=== PATIENT | female | born 1960 | race American Indian/Alaskan Native ===

== ENCOUNTER 2019-06-30 21:16 | Emergency (ER) | payer BC, OTHER ==
[2019-07-01 02:25] LABS: Basophils # (Auto) 0.1 K/mm3 (0.0-0.1); Basophils % (Auto) 0.6 % (0.0-1.8); Eosinophils # (Auto) 0.2 K/mm3 (0.0-0.4); Eosinophils % (Auto) 1.9 % (0.0-4.3); Hematocrit 39.7 % (30.3-42.9); Hemoglobin 13.7 gm/dl (10.1-14.3); Lymphocytes # (Auto) 3.1 K/mm3 (1.2-5.4); Lymphocytes % (Auto) 33.8 % (13.4-35.0); Mean Corpuscular HGB Conc 34 % (30-34); Mean Corpuscular Volume 90 fl (79-97); Monocytes # (Auto) 0.6 K/mm3 (0.0-0.8); Platelet Count 299 K/mm3 (140-440); Red Blood Count 4.41 M/mm3 (3.65-5.03); Red Cell Distribution Width 14.3 % (13.2-15.2)
[2019-07-01] MEDS ORDERED: KETOROLAC 30 MG/1 ML INJ IV ONE (02:28)
[2019-07-01] MEDS ORDERED: ONDANSETRON 4 MG/2 ML INJ IV ONE (02:28)
[2019-07-01] MEDS ORDERED: MORPHINE 4 MG/1 ML INJ IV ONE (02:28)
--- NOTE | 2019-07-01 02:30 | Emergency Department Report ---
ED General Adult HPI - General Chief complaint: Abdominal Pain Stated complaint: LT LOWR SIDE PAIN Time Seen by Provider: 07/01/19 01:44 Source: patient, RN notes reviewed, old records reviewed Mode of arrival: Ambulatory Limitations: No Limitations - History of Present Illness Initial comments: This is a pleasant 58-year-old female. This patient is not known to myself previously. She has a history of nephrolithiasis. She presents to the ER today with a complaint of nontraumatic left-sided flank pain. It is achy and throbbing. It is constant. It does not radiate anywhere. She thinks it may be similar to her prior episodes of kidney stones, but she is not sure. She denies hematuria, dysuria, irritative and obstructive urinary symptoms. She denies recent surgery, travel, and she denies DVT, pulmonary embolism risk factors. On review of systems, she endorses heartburn and heart acid feeling, present for a few weeks. There is no vomiting, diaphoresis, exertional shortness of breath, this does not have exacerbating or relieving factors, and does not radiate anywhere. Her symptoms were improved by hydromorphone, and ketorolac in the emergency room. -: Gradual Location: abdomen Radiation: non-radiation Quality: other Consistency: other Improves with: other Worsens with: other - Related Data Home Medications Medication Instructions Recorded Confirmed Last Taken Triamter/Hctz 37.5-25 mg 1 tab PO QDAY 06/24/13 05/28/15 05/27/15 10:00 [Maxzide-25] Previous Rx's Medication Instructions Recorded Last Taken Type Acetaminophen [Non-Aspirin Extra 500 mg PO Q6HR PRN #30 tablet 07/01/19 Unknown Rx Strength] Famotidine [Pepcid] 20 mg PO BID #10 tablet 07/01/19 Unknown Rx Ibuprofen [Motrin] 600 mg PO Q8H PRN #30 tablet 07/01/19 Unknown Rx Allergies Allergy/AdvReac Type Severity Reaction Status Date / Time No Known Allergies Allergy Verified 04/12/15 15:11 ED Review of Systems ROS: Stated complaint: LT LOWR SIDE PAIN Other details as noted in HPI Constitutional: denies: fever, malaise Eyes: denies: eye discharge Respiratory: denies: wheezing Cardiovascular: other Gastrointestinal: abdominal pain. denies: nausea, vomiting, hematemesis, melena, hematochezia Genitourinary: denies: urgency, dysuria, frequency, hematuria Musculoskeletal: back pain Skin: denies: lesions Hematological/Lymphatic: denies: easy bleeding ED Past Medical Hx - Past Medical History Hx Hypertension: Yes Hx GERD: Yes Hx Renal Disease: Yes (Kidney stones) Hx Kidney Stones: Yes Hx Asthma: No Hx HIV: No - Surgical History Hx Cholecystectomy: Yes Additional Surgical History: Herniated disc. Hernia repair. kidney stone removal. - Social History Smoking Status: Never Smoker Substance Use Type: None - Medications Home Medications: Home Medications Medication Instructions Recorded Confirmed Last Taken Type Triamter/Hctz 37.5-25 mg 1 tab PO QDAY 06/24/13 05/28/15 05/27/15 10:00 History [Maxzide-25] Acetaminophen [Non-Aspirin Extra 500 mg PO Q6HR PRN #30 tablet 07/01/19 Unknown Rx Strength] Famotidine [Pepcid] 20 mg PO BID #10 tablet 07/01/19 Unknown Rx Ibuprofen [Motrin] 600 mg PO Q8H PRN #30 tablet 07/01/19 Unknown Rx ED Physical Exam - General Limitations: No Limitations General appearance: alert, in no apparent distress - Head Head exam: Present: atraumatic, normocephalic - Eye Eye exam: Present: normal appearance, EOMI. Absent: nystagmus - ENT ENT exam: Present: normal exam, normal orophraynx, mucous membranes moist, normal external ear exam - Neck Neck exam: Present: normal inspection, full ROM. Absent: tenderness, mening ismus - Respiratory Respiratory exam: Present: normal lung sounds bilaterally. Absent: respiratory distress - Cardiovascular Cardiovascular Exam: Present: regular rate, normal rhythm, normal heart sounds. Absent: bradycardia, tachycardia, irregular rhythm, systolic murmur, diastolic murmur, rubs, gallop - GI/Abdominal GI/Abdominal exam: Present: soft, normal bowel sounds. Absent: distended, tenderness, guarding, rebound, rigid, pulsatile mass - Extremities Exam Extremities exam: Present: normal inspection, full ROM, other (2+ pulses noted in the bilateral upper and lower extremities. There is no palpable cord. negative Homans sign. Muscular compartments are soft. The pelvis is stable.). Absent: pedal edema, calf tenderness - Back Exam Back exam: Present: normal inspection, full ROM. Absent: tenderness, CVA tenderness (R), CVA tenderness (L), paraspinal tenderness, vertebral tenderness - Neurological Exam Neurological exam: Present: alert, oriented X3, normal gait, other (There is no facial droop. The tongue is midline. Extraocular movements are intact bilaterally. There is 5 out of 5 strength in bilateral upper and lower extremities. Sensation is intact to light touch bilateral upper and lower extremities. There is a normal gait.). Absent: motor sensory deficit - Psychiatric Psychiatric exam: Present: normal affect, normal mood - Skin Skin exam: Present: warm, dry, intact, normal color. Absent: rash ED Course Vital Signs 06/30/19 07/01/19 21:27 01:49 Temperature 98.6 F Pulse Rate 74 67 Respiratory 18 14 Rate Blood Pressure 127/57 148/84 O2 Sat by Pulse 96 97 Oximetry - Reevaluation(s) Reevaluation #1: 07/01/19 05:43 Patient endorsed that her pain felt much improved at the time of discharge. Indeed, at the time of discharge, she is now pain-free, smiling, and endorses readiness for going home. ED Medical Decision Making - Lab Data Result diagrams: 07/01/19 02:02 07/01/19 02:02 Vital Signs 06/30/19 07/01/19 21:27 01:49 Temperature 98.6 F Pulse Rate 74 67 Respiratory 18 14 Rate Blood Pressure 127/57 148/84 O2 Sat by Pulse 96 97 Oximetry Lab Results 07/01/19 07/01/19 07/01/19 Range/Units 02:02 02:02 02:15 WBC 9.3 (4.5-11.0) K/mm3 RBC 4.41 (3.65-5.03) M/mm3 Hgb 13.7 (10.1-14.3) gm/dl Hct 39.7 (30.3-42.9) % MCV 90 (79-97) fl MCH 31 (28-32) pg MCHC 34 (30-34) % RDW 14.3 (13.2-15.2) % Plt Count 299 (140-440) K/mm3 Lymph % (Auto) 33.8 (13.4-35.0) % [place] % (Auto) 7.0 (0.0-7.3) % Eos % (Auto) 1.9 (0.0-4.3) % Baso % (Auto) 0.6 (0.0-1.8) % Lymph # 3.1 (1.2-5.4) K/mm3 [place] # 0.6 (0.0-0.8) K/mm3 Eos # 0.2 (0.0-0.4) K/mm3 Baso # 0.1 (0.0-0.1) K/mm3 Seg Neutrophils % 56.7 (40.0-70.0) % Seg Neutrophils # 5.2 (1.8-7.7) K/mm3 Sodium 142 (137-145) mmol/L Potassium 4.1 (3.6-5.0) mmol/L Chloride 102.4 (98-107) mmol/L Carbon Dioxide 28 (22-30) mmol/L Anion Gap 16 mmol/L BUN 16 (7-17) mg/dL Creatinine 0.6 L (0.7-1.2) mg/dL Estimated GFR > 60 ml/min BUN/Creatinine Ratio 27 % Glucose 98 (65-100) mg/dL Calcium 9.5 (8.4-10.2) mg/dL Magnesium (1.7-2.3) mg/dL Total Bilirubin 0.20 (0.1-1.2) mg/dL AST 31 (5-40) units/L ALT 41 (7-56) units/L Alkaline Phosphatase 88 (35-129) units/L Total Creatine Kinase (30-135) units/L Troponin T (0.00-0.029) ng/mL Total Protein 7.4 (6.3-8.2) g/dL Albumin 4.4 (3.9-5) g/dL Albumin/Globulin Ratio 1.5 % Urine Color Yellow (Yellow) Urine Turbidity Clear (Clear) Urine pH 5.0 (5.0-7.0) Ur Specific [place] 1.023 (1.003-1.030) Urine Protein <15 mg/dl (Negative) mg/dL Urine Glucose (UA) Neg (Negative) mg/dL Urine Ketones Neg (Negative) mg/dL Urine Blood Neg (Negative) Urine Nitrite Neg (Negative) Urine Bilirubin Neg (Negative) Urine Urobilinogen < 2.0 (<2.0) mg/dL Ur Leukocyte Esterase Neg (Negative) Urine WBC (Auto) 1.0 (0.0-6.0) /HPF Urine RBC (Auto) 1.0 (0.0-6.0) /HPF U Epithel Cells (Auto) < 1.0 (0-13.0) /HPF Urine Bacteria (Auto) 1+ (Negative) /HPF Urine Mucus Few /HPF 07/01/19 07/01/19 Range/Units 02:31 03:32 WBC (4.5-11.0) K/mm3 RBC (3.65-5.03) M/mm3 Hgb (10.1-14.3) gm/dl Hct (30.3-42.9) % MCV (79-97) fl MCH (28-32) pg MCHC (30-34) % RDW (13.2-15.2) % Plt Count (140-440) K/mm3 Lymph % (Auto) (13.4-35.0) % [place] % (Auto) (0.0-7.3) % Eos % (Auto) (0.0-4.3) % Baso % (Auto) (0.0-1.8) % Lymph # (1.2-5.4) K/mm3 [place] # (0.0-0.8) K/mm3 Eos # (0.0-0.4) K/mm3 Baso # (0.0-0.1) K/mm3 Seg Neutrophils % (40.0-70.0) % Seg Neutrophils # (1.8-7.7) K/mm3 Sodium (137-145) mmol/L Potassium (3.6-5.0) mmol/L Chloride (98-107) mmol/L Carbon Dioxide (22-30) mmol/L Anion Gap mmol/L BUN (7-17) mg/dL Creatinine (0.7-1.2) mg/dL Estimated GFR ml/min BUN/Creatinine Ratio % Glucose (65-100) mg/dL Calcium (8.4-10.2) mg/dL Magnesium 2.20 (1.7-2.3) mg/dL Total Bilirubin (0.1-1.2) mg/dL AST (5-40) units/L ALT (7-56) units/L Alkaline Phosphatase (35-129) units/L Total Creatine Kinase 80 (30-135) units/L Troponin T < 0.010 (0.00-0.029) ng/mL Total Protein (6.3-8.2) g/dL Albumin (3.9-5) g/dL Albumin/Globulin Ratio % Urine Color (Yellow) Urine Turbidity (Clear) Urine pH (5.0-7.0) Ur Specific [place] (1.003-1.030) Urine Protein (Negative) mg/dL Urine Glucose (UA) (Negative) mg/dL Urine Ketones (Negative) mg/dL Urine Blood (Negative) Urine Nitrite (Negative) Urine Bilirubin (Negative) Urine Urobilinogen (<2.0) mg/dL Ur Leukocyte Esterase (Negative) Urine WBC (Auto) (0.0-6.0) /HPF Urine RBC (Auto) (0.0-6.0) /HPF U Epithel Cells (Auto) (0-13.0) /HPF Urine Bacteria (Auto) (Negative) /HPF Urine Mucus /HPF - EKG Data -: EKG Interpreted by Ne EKG shows normal: sinus rhythm Rate: normal - EKG Data Interpretation: unchanged when compared t (03/2015) 07/01/19 05:24 EKG #1 shows a sinus rhythm, 62 bpm, rate 62 bpm, borderline leftward axis deviation, low voltage in the inferior leads, Q waves noted in lead III, there is prolonged NC interval, the EKG is abnormal, it is not consistent with ST elevation myocardial infarction. EKG #2 appears to be unchanged from prior EKG. Neither EKG consistent with STEMI. - Radiology Data Radiology results: report reviewed, image reviewed X-ray of the chest is negative for acute disease. Noncontrast CT scan of the abdomen pelvis is negative for acute disease. - Medical Decision Making Differential diagnosis, including not limited to: Renal colic, urinary tract infection, constipation obstruction, lower lobe pneumonia, AAA, GERD, gastritis, hiatal hernia, musculoskeletal back pain Assessment and plan: 58-year-old female, not tachycardic, tachypneic or hypoxic, with no DVT or pulmonary embolism risk factors, low risk by Wells criteria, with primary complaint of nontraumatic left-sided flank pain. Exam unremarkable, laboratory studies unremarkable, urinalysis unremarkable, CT scan abdomen pelvis unremarkable. Her pain was treated aggressively and she felt improved. Secondarily endorsed complaint of heartburn, 4 weeks. EKG unchanged x2, troponin negative x1, low risk for major adverse cardiac event as per heart score, as per [employer] clinical policy, myocardial infarction may be excluded with 1 set of cardiac enzymes if symptoms present for greater than 8 hours. Patient suitable for trial of outpatient management and close outpatient follow-up. Return precautions are reviewed. Patient endorses understanding. Critical care attestation.: If time is entered above; I have spent that time in minutes in the direct care of this critically ill patient, excluding procedure time. ED Disposition Clinical Impression: Left flank pain, History of heartburn Disposition: TO HOME OR SELFCARE Is pt being admited?: No Does the pt Need Aspirin: No Condition: Stable Additional Instructions: Rest, avoid heavy lifting, and avoid strenuous physical activities. Take the medications as needed and/or directed. Recommend follow-up with your outpatient primary care doctor within the next 5 to 7 days. Recommend follow-up with a primary care doctor or malted milk mixer for sensation of heartburn within the next 3 to 5 days. Please return to the emergency room right away with projectile vomiting, change in mental status, confusion, inability to tolerate liquid feeds, new, worsened or different symptoms not present on the initial emergency room evaluation. Prescriptions: Ibuprofen [Motrin] 600 mg PO Q8H PRN #30 tablet PRN Reason: Pain Acetaminophen [Non-Aspirin Extra Strength] 500 mg PO Q6HR PRN #30 tablet PRN Reason: Pain , Severe (7-10) Famotidine [Pepcid] 20 mg PO BID #10 tablet Referrals: MINNIE DAVIS MD [Primary Care Provider] - 3-5 Days [facility] [Provider Group] - 3-5 Days [facility] [Provider Group] - 3-5 Days
[2019-07-01 02:42] LABS: Alanine Aminotransferase 41 units/L (7-56); Albumin 4.4 g/dL (3.9-5); BUN/Creatinine Ratio 27; Blood Urea Nitrogen 16 mg/dL (7-17); Calcium 9.5 mg/dL (8.4-10.2); Hemolysis Index 5
[2019-07-01 03:16] LABS: Bacteria,Urine 1+ /HPF (Negative); Bilirubin,Urine NEG (Negative); Blood,Urine NEG (Negative); Color,Urine Yellow (Yellow); Mucus,Urine FEW /HPF; Protein,Urine <15 mg/dL mg/dL (Negative); Urobilinogen,Urine < 2.0 mg/dL (<2.0)
[2019-07-01] MEDS ORDERED: HYDROmorphone 1 MG/1 ML INJ IV ONE (03:28)
--- NOTE | 2019-07-01 04:02 | XRay Report ---
CHEST 1 VIEW 07/01/2019 3:29 AM INDICATION / CLINICAL INFORMATION: heart burn and acid feeling. COMPARISON: One view of the chest from 04/12/2015. FINDINGS: SUPPORT DEVICES: None. HEART / MEDIASTINUM: No significant abnormality. LUNGS / PLEURA: No significant pulmonary or pleural abnormality. No pneumothorax. ADDITIONAL FINDINGS: No significant additional findings. IMPRESSION: 1. No acute abnormality of the chest. Signer Name: Ashu Mcknight MD Signed: 07/01/2019 3:58 AM Workstation Name: [id number]
--- NOTE | 2019-07-01 04:33 | Cat Scan Report ---
CT ABDOMEN AND PELVIS WITHOUT CONTRAST INDICATION: Left flank pain, nausea. COMPARISON: CT abdomen and pelvis without contrast from 05/16/2015. TECHNIQUE: Axial, coronal and sagittal CT imaging of the abdomen and pelvis was performed without co ntrast. Lack of intravenous contrast limits evaluation of the vascular and solid organs. All CT sca ns at this location are performed using CT dose reduction for ALARA by means of automated exposure co ntrol. FINDINGS: LOWER CHEST: No significant abnormality. LIVER: No significant abnormality. BILIARY: Prior cholecystectomy. Prominence of the bile ducts is consistent with prior cholecystectomy . PANCREAS: No significant abnormality. SPLEEN: No significant abnormality. ADRENALS: No significant abnormality. KIDNEYS AND URETERS: No significant abnormality. GI TRACT: No significant abnormality of the stomach or small bowel. There is generalized colonic dive rticulosis without evidence of diverticulitis. The appendix is not identified. PERITONEUM: No free fluid. No free air. No fluid collection. LYMPH NODES: No significant adenopathy. VASCULATURE: No significant abnormality. URINARY BLADDER: No significant abnormality. REPRODUCTIVE ORGANS: No significant abnormality. ADDITIONAL FINDINGS: Unremarkable appearing mesh/hernia repair changes are seen along the upper abdom en. SKELETAL SYSTEM: No acute abnormality. There are mild degenerative changes of the spine and SI joints . IMPRESSION: 1. No acute abnormality of the abdomen or pelvis. 2. Additional findings as above. Signer Name: Ashu Mcknight MD Signed: 07/01/2019 4:29 AM Workstation Name: [id number]
[2019-07-01 06:32] VITALS: BP 124/64
== END 2019-07-01 06:15 | disposition home or self-care (01) ==
LOC: ED 21:16
DX: R10.9 Unspecified abdominal pain (principal); M54.9 Dorsalgia, unspecified; I10 Essential (primary) hypertension; K21.9 Gastro-esophageal reflux disease without esophagitis; Z90.49 Acquired absence of other specified parts of digestive tract
CPT/HCPCS: 36415; 71045; 74176; 80053; 81001; 82550; 83735; 84484; 85025; 93005; 93010; 96374; 96375; 99285; J1170; J1885; J2270; J2405